=== PATIENT | male | born 1990 | race Caucasian/White ===

== ENCOUNTER 2020-06-17 19:22 | Emergency (ER) | payer OTHER ==
[2020-06-17 19:28] VITALS: RESP 18; TEMP 98.5
[2020-06-17] MEDS ORDERED: KETOROLAC 15 MG/ML 1 ML VIAL IM STA (20:02)
--- NOTE | 2020-06-17 20:05 | ED ---
General Adult HPI - General Chief complaint: Extremity Injury, Lower Stated complaint: RT ankle injury/Fall Time Seen by Provider: 06/17/20 19:30 Source: patient Mode of arrival: wheelchair Limitations: physical limitation - History of Present Illness Initial comments: 29-year-old male presents to the emergency room for a chief complaint of right ankle injury. Patient reports he was trying to carry a box spring down the stairs when he missed a step and twisted his ankle. States it was inverted. Patient states his whole foot and ankle hurt but worse on the ankle. Patient denies fall. Denies any other injury.Patient has no other complaints at this time including shortness of breath, chest pain, abdominal pain, nausea or vomiting, headache, or visual changes. - Related Data Allergies Allergy/AdvReac Type Severity Reaction Status Date / Time cat dander Allergy Itching Verified 06/17/20 19:28 dog dander Allergy Itching Verified 06/17/20 19:28 Review of Systems ROS Statement: Those systems with pertinent positive or pertinent negative responses have been documented in the HPI. ROS Other: All systems not noted in ROS Statement are negative. Past Medical History Additional Past Medical History / Comment(s): migraines, History of Any Multi-Drug Resistant Organisms: None Reported Past Surgical History: No Surgical Hx Reported Past Psychological History: No Psychological Hx Reported Smoking Status: Former smoker Past Alcohol Use History: Occasional Past Drug Use History: None Reported General Exam Limitations: physical limitation General appearance: alert, in no apparent distress Head exam: Present: atraumatic, normocephalic, normal inspection Eye exam: Present: normal appearance, PERRL, EOMI. Absent: scleral icterus, conjunctival injection, periorbital swelling ENT exam: Present: normal exam, mucous membranes moist Neck exam: Present: normal inspection, full ROM. Absent: tenderness, meningismus, lymphadenopathy Respiratory exam: Present: normal lung sounds bilaterally. Absent: respiratory distress, wheezes, rales, rhonchi, stridor Cardiovascular Exam: Present: regular rate, normal rhythm, normal heart sounds. Absent: systolic murmur, diastolic murmur, rubs, gallop, clicks GI/Abdominal exam: Present: soft, normal bowel sounds. Absent: distended, tenderness, guarding, rebound, rigid Extremities exam: Present: tenderness (Tenderness to the lateral malleolus of the right ankle. no tenderness to the medial malleolus of the right ankle, no tenderness to the 5th metacarpal or navicular), normal capillary refill (cap refill < 2 secs, DP pulse 2+), joint swelling (edema noted to the right ankle, lateral malleolus), other (sensation intact RLE). Absent: full ROM (Decreased range of motion of the right ankle secondary to pain.), pedal edema, calf tenderness Neurological exam: Present: alert Course Vital Signs 06/17/20 19:24 Temperature 98.5 F Pulse Rate 115 H Respiratory 18 Rate Blood Pressure 143/88 O2 Sat by Pulse 98 Oximetry Medical Decision Making - Medical Decision Making The right ankle shows lateral soft tissue swelling without fracture. X-ray of the right foot shows negative right foot exam. Pt was splinted in an OCL splint. Given crutches. Will follow up with orthopedics turn will return here for any worsening symptoms. Disposition Clinical Impression: Ankle pain Disposition: HOME SELF-CARE Condition: Good Instructions (If sedation given, give patient instructions): Ankle Sprain (ED) Additional Instructions: Please take Motrin and Tylenol for pain. Follow-up with orthopedics. Return to the emergency room for any worsening symptoms. Is patient prescribed a controlled substance at d/c from ED?: No Referrals: Nonstaff,Physician [Primary Care Provider] - 1-2 days Gordon Lopez MD [STAFF PHYSICIAN] - 1-2 days Time of Disposition: 20:52
--- NOTE | 2020-06-17 20:33 | XR ---
EXAMINATION TYPE: XR ankle complete RT DATE OF EXAM: 06/17/2020 COMPARISON: NONE HISTORY: Foot pain TECHNIQUE: 3 views FINDINGS: I see no fracture nor dislocation. There is soft tissue swelling over the lateral malleolus . Ankle mortise is anatomic. IMPRESSION: Lateral soft tissue swelling. No fracture.
--- NOTE | 2020-06-17 20:35 | XR ---
EXAMINATION TYPE: XR foot complete RT DATE OF EXAM: 06/17/2020 COMPARISON: NONE HISTORY: Pain TECHNIQUE: 3 views FINDINGS: Metatarsals appear intact. I see no fracture nor dislocation. Joint spaces are normal. IMPRESSION: Negative right foot exam.
[2020-06-17 21:20] VITALS: BP 149/95; PULSE 110
== END 2020-06-17 21:20 | disposition home or self-care (01) ==
LOC: EC 19:22
DX: S99.911A Unspecified injury of right ankle, initial encounter (principal); M79.671 Pain in right foot; G43.909 Migraine, unspecified, not intractable, without status migrainosus; Z87.891 Personal history of nicotine dependence; X50.1XXA Overexertion from prolonged static or awkward postures, initial encounter
CPT/HCPCS: 73610; 73630; 99284; 29515; 96372; J1885